=== PATIENT | male | born 1970 | race Caucasian/White ===

== ENCOUNTER 2020-02-01 06:37 | Emergency (ER) | payer OTHER ==
[~2020-02-01] VITALS: Ht 180.3 cm; Wt 94.3 kg
[2020-02-01] MEDS ORDERED: HYDROMORPHONE HC2 MG PO (13:01)
[2020-02-01] MEDS ORDERED: PROMETHAZINE HC25 M1 PO (13:01)
[2020-02-01] MEDS ORDERED: ONDANSETRON ODT8 MG PO (13:01)
== END 2020-02-01 13:20 | disposition home or self-care (01) ==
LOC: ED 06:37
DX: N13.2 Hydronephrosis with renal and ureteral calculous obstruction (principal); I10 Essential (primary) hypertension
CPT/HCPCS: 74177; 80053; 81001; 83690; 85025; 96361; 96375; 96376; 99284-25; J1170; J1885; J2405; J2550; J7030; Q9967

== ENCOUNTER 2021-02-23 07:08 | Day surgery (SDC) | payer BC ==
[~2021-02-23] VITALS: Ht 180.3 cm; Wt 96.4 kg
[~2021-02-23 07:08] MED LIST: FENOFIBRATE145 MG PO; FISH OIL 1,0001 EACH PO; HYDROMORPHONE HC2 MG PO; MULTI VITAMIN1 EACH PO; NIACIN ER1000 MG PO; ONDANSETRON ODT8 MG PO; PROMETHAZINE HC25 M1 PO
--- NOTE | 2021-02-23 08:34 | NUR ---
02/23/21 0834 Marion Lockhart 2163-PATIENT ARRIVED TO PACU ON 2L NC DROWSY RR EVEN. PLACED ON RA. DENIES PAIN OR NAUSEA. LAYING LEFT LATERAL ABDOMEN SOFT. IVF INFUSING. PATIENT GOES BACK TO SLEEP.
--- NOTE | 2021-02-23 08:46 | NUR ---
PT ALERT, ORIENTED AND HERE FOR HIS FIRST SCOPE. DEALT WITH SCOPE WELL COULD BE EXPECTED. ALL QUESTIONS ASKED ANSWERED. PTS' WILL PICKUP AT DC PT REQUESTED PRAYER, WILL FOLLOW NEEDED
--- NOTE | 2021-02-24 07:43 | OR ---
[facility] [address] [place], [place] [address] Signed DATE OF OPERATION: 02/23/2021 SURGEON: Estefani Jones MD PREOPERATIVE DIAGNOSES: 1. Screening. 2. Chronic abdominal pain. 3. Chronic diarrhea. POSTOPERATIVE DIAGNOSES: 1. 4 mm polyp at 20 cm (rectosigmoid junction). 2. Minimal sigmoid diverticulosis. 3. Minimal internal hemorrhoids. PROCEDURE: Colonoscopy with hot biopsy. ESTIMATED BLOOD LOSS: None. INDICATIONS: Reji is a 50-year-old gentleman, asked to see me for his initial screening colonoscopy. He spoke of chronic abdominal pain and diarrhea. He knows that he has to avoid. He gives no family history of colon cancer or polyps. In the office, I gave him a pamphlet on colonoscopy. We had reviewed the nature of the test along with the risks including, but not limited to gas bloating, crampy abdominal pain, bleeding, perforation requiring surgery, and missed diagnosis. We also discussed the need for IV conscious sedation. He had expressed understanding and wished to proceed. PROCEDURE NOTE: Reji was taken into our endoscopy suite and placed in the left lateral decubitus position. He was given IV sedation with 100 mcg of fentanyl and 7 mg of Versed. A digital rectal exam was performed and this was unremarkable. He has just mild induration to the prostate. The adult colonoscope was introduced and advanced all around into the cecum under direct visualization of camera without difficulty. His prep was quite good. We could easily see the appendiceal orifice and the ileocecal valve. We took pictures throughout for photodocumentation. The scope was then slowly withdrawn. We removed a small polyp at the rectosigmoid junction. This was done with hot biopsy forceps. We also saw just a few diverticula in the sigmoid colon. They were small in size, few in number, and scattered about. In the rectum, the scope was Electronically Signed By: ESTEFANI JONES MD 02/24/21 0743 PATIENT NAME: REJI KIM OPERATIVE REPORT DATE OF : 68 REPORT #: [id number] PHYSICIAN: ESTEFANI JONES MD PCP: NADEEM CABALLERO DO REPORT IS CONFIDENTIAL AND NOT TO BE RELEASED WITHOUT AUTHORIZATION [facility] [address] [place] [id number] Signed retroflexed and he has just very minimal internal hemorrhoid tissue. After this, the gas was suctioned out and colonoscope removed. Reji tolerated the procedure quite well. RECOMMENDATIONS: I will see Reji back in my office in 7 to 14 days to review his results. Estefani Jones MD ALB/RODNEYL /[id number] cc: MD Nadeem Whalen DO Copies: ESTEFANI JONES MD, FRANK E DO ~ Electronically Signed By: ESTEFANI JONES MD 02/24/21 0743 PATIENT NAME: REJI KIM OPERATIVE REPORT DATE OF : 68 REPORT #: [id number] PHYSICIAN: ESTEFANI JONES MD PCP: NADEEM CABALLERO DO REPORT IS CONFIDENTIAL AND NOT TO BE RELEASED WITHOUT AUTHORIZATION
--- NOTE | 2021-02-24 11:30 | PATH ---
[facility] [address] [place], [place] [address] Signed SPECIMEN(S): A SIGMOID POLYP 20 CM SPECIMEN SOURCE: A. SIGMOID POLYP 20 CM CLINICAL HISTORY: Chronic abdominal pain and diarrhea. Post-op: Diverticulosis, polyps, small internal hemorrhoids. MICROSCOPIC DESCRIPTION: Histologic sections of all submitted blocks are examined by light microscopy. These findings, together with the gross examination, support the pathologic diagnosis. FINAL PATHOLOGIC DIAGNOSIS: Colon, sigmoid polyp at 20 cm, polypectomy: - Hyperplastic polyp. - Negative for dysplasia or malignancy. NAL:cml:C2NR GROSS DESCRIPTION: The specimen, labeled "TA, sigmoid colon polyp at 20 cm," is received in formalin and consists of one feng soft tissue fragment that measures 0.2 cm in greatest dimension. The specimen is entirely submitted in cassette (A1). JS (under the direct supervision of a pathologist) The Gross Description was prepared using a voice recognition system. The report was reviewed for accuracy; however, sound-alike word errors, addition and/or deletions may occur. If there is any question about this report, please contact Client Services. PERFORMING LABORATORY: The technical component was performed by [facility], [address] [place] [id number] (Director Data: Dania Nelson MD; CLIA# [id number]). [facility], [address] [address] (CLIA# [id number]). Diagnostician: Judy Tejeda MD Pathologist Electronically Signed 02/24/2021 PATIENT NAME: HECTOR KIM PATHOLOGY DATE OF : 68 REPORT #: [id number] PHYSICIAN: [facility] PCP: SERVANDO CABALLERO DO REPORT IS CONFIDENTIAL AND NOT TO BE RELEASED WITHOUT AUTHORIZATION [address] [place] [address] Signed Copies: ~ PATIENT NAME: HECTOR KIM PATHOLOGY DATE OF : 68 REPORT #: [id number] PHYSICIAN: [facility] PATH[facility] PCP: SERVANDO CABALLERO DO REPORT IS CONFIDENTIAL AND NOT TO BE RELEASED WITHOUT AUTHORIZATION
== END 2021-02-23 09:15 | disposition home or self-care (01) ==
LOC: DS 07:08 → OPS 07:08 → DS 08:15 → OPS 09:15
PROVIDERS: ATTEND Colon & Rectal Surgery
PROC: 0DBN8ZX Excision of Sigmoid Colon, Via Natural or Artificial Opening Endoscopic, Diagnostic (ICD-10-PCS; principal; 2021-02-23 08:15)
DX: Z12.11 Encounter for screening for malignant neoplasm of colon (principal); K63.5 Polyp of colon; K57.30 Diverticulosis of large intestine without perforation or abscess without bleeding; K64.8 Other hemorrhoids; R19.7 Diarrhea, unspecified; R10.84 Generalized abdominal pain; E78.1 Pure hyperglyceridemia; E66.9 Obesity, unspecified; Z68.29 Body mass index [BMI] 29.0-29.9, adult
CPT/HCPCS: G0500; J2250; J3010; J7121